=== PATIENT | female | born 1990 | race Caucasian/White ===

== ENCOUNTER 2019-01-11 12:18 | Emergency (ER) | payer OTHER ==
--- OUTSIDE RECORDS SUMMARY | 2019-01-11 12:20 | XMS REPORT ---
:1990 [facility] Address [address] [place] [address] [address]. [address] [place] [address] Care Team Providers Name Role Phone Unavailable Unavailable Unavailable Problems This patient has no known problems. Allergies, Adverse Reactions, Alerts This patient has no known allergies or adverse reactions. Medications This patient has no known medications.
[2019-01-11] MEDS ORDERED: DEXAMETHASONE 10 MG/ML VIAL ONE (13:31)
[2019-01-11] MEDS ORDERED: MEPERIDINE HCL 25 MG/0.5 ML ONE (13:31)
[2019-01-11] MEDS ORDERED: KETOROLAC 30 MG/ML INJ ONE (13:32)
--- NOTE | 2019-01-11 14:12 | ER ---
Nurse's Notes [facility] Name: Ana Laura Aparicio Age: 28 yrs Sex: Female : 1990 Arrival Date: 01/11/2019 Time: 12:19 Bed 4 Private MD: Diagnosis: Low back pain;Strain of muscle, fascia and tendon of lower back Presentation: 01/11 12:42 Presenting complaint: Patient states: mid back pain radiating to low back since iw , states she lifted something wrong. Transition of care: patient was not received from another setting of care. Onset of symptoms was January 08, 2019. Risk Assessment: Do you want to hurt yourself or someone else? Patient reports no desire to harm self or others. Initial Sepsis Screen: Does the patient meet any 2 criteria? No. Patient's initial sepsis screen is negative. Does the patient have a suspected source of infection? No. Patient's initial sepsis screen is negative. Care prior to arrival: None. 12:42 Method Of Arrival: Ambulatory iw 12:42 Acuity: JEFFERY 4 iw Triage Assessment: 13:15 General: Appears in no apparent distress. uncomfortable. General: Behavior is calm, hj cooperative, appropriate for age. Pain: Complains of pain in back. Musculoskeletal: Circulation, motion, and sensation intact. Capillary refill < 3 seconds, is > 3 seconds. 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 - Social history:: Smoking status: Patient uses tobacco products, smokes one pack cigarettes per day. - Ebola Screening: : Patient negative for fever greater than or equal to 101.5 degrees Fahrenheit, and additional compatible Ebola Virus Disease symptoms Patient denies exposure to infectious person Patient denies travel to an Ebola-affected area in the 21 days before illness onset No symptoms or risks identified at this time. - Family history:: not pertinent. - Hospitalizations: : No recent hospitalization is reported. Screenin:15 Abuse screen: Denies threats or abuse. Denies injuries from another. Nutritional hj screening: No deficits noted. Tuberculosis screening: No symptoms or risk factors identified. Fall Risk None identified. Assessment: 13:15 General: Appears in no apparent distress. uncomfortable, Behavior is calm, cooperative, hj appropriate for age. Pain: Complains of pain in back. Neuro: Level of Consciousness is Oriented to. Cardiovascular: Capillary refill < 3 seconds Patient's skin is warm and dry. Respiratory: Airway is patent Respiratory effort is even, unlabored, Respiratory pattern is regular, symmetrical. GI: No signs and/or symptoms were reported involving the gastrointestinal system. : No signs and/or symptoms were reported regarding the genitourinary system. EENT: No signs and/or symptoms were reported regarding the EENT system. Derm: No signs and/or symptoms reported regarding the dermatologic system. Musculoskeletal: Reports pain in back. Vital Signs: 12:46 BP 120 / 70; Pulse 63; Resp 16; Pulse Ox 100% on R/A; Weight 77.11 kg; Height 5 ft. 5 iw in. (165.10 cm); Pain 9/10; 12:46 Body Mass Index 28.29 (77.11 kg, 165.10 cm) iw ED Course: 12:19 Patient arrived in ED. as 12:37 Edmar Fitzgerald MD is Attending Physician. rn 12:45 Triage completed. iw 12:46 Arm band placed on. iw 13:03 Jah Eli, KENZIE is Primary Nurse. hj 13:15 Patient has correct armband on for positive identification. Bed in low position. Call hj light in reach. Side rails up X 1. 13:15 Inserted saline lock: 22 gauge in right antecubital area, using aseptic technique. hj 14:26 No provider procedures requiring assistance completed. IV discontinued, intact, iw bleeding controlled, No redness/swelling at site. Pressure dressing applied. Administered Medications: 13:24 Drug: Decadron - Dexamethasone 10 mg Route: IVP; Site: right antecubital; hj 14:02 Follow up: Response: No adverse reaction hj 13:24 Drug: TORadol - Ketorolac 15 mg Route: IVP; Site: right antecubital; hj 14:02 Follow up: Response: No adverse reaction; Pain is decreased hj 13:25 Drug: Demerol 25 mg Route: IVP; Site: right antecubital; hj 14:02 Follow up: Response: No adverse reaction; Pain is decreased hj 14:07 Drug: morphine 4 mg Route: IVP; Site: right antecubital; hj 14:13 Follow up: Response: No adverse reaction; Pain is decreased Outcome: 14:11 Discharge ordered by . rn 14:26 Discharged to home ambulatory, with friend. iw 14:26 Condition: good 14:26 Discharge instructions given to patient, family, Instructed on discharge instructions, follow up and referral plans. medication usage, Demonstrated understanding of instructions, follow-up care, medications, Prescriptions given X 3. 14:27 Patient left the ED. iw Signatures: Bianca Mejia Irene, RN RN iw Nieto, Roman, MD MD rn Joaquin, Henry, RN RN
--- NOTE | 2019-01-11 14:12 | EDPHYS ---
Physician Documentation [facility] Name: Ana Laura Aparicio Age: 28 yrs Sex: Female : 1990 Arrival Date: 01/11/2019 Time: 12:19 Bed 4 Private MD: ED Physician Edmar Fitzgerald HPI: 01/11 13:10 This 28 yrs old Female presents to ER via Ambulatory with complaints of Back rn Pain. 13:10 The patient presents with pain that is acute. The symptoms are located in the low back. rn Onset: The symptoms/episode began/occurred 3 day(s) ago. The pain does not radiate. Associated signs and symptoms: The patient has no apparent associated signs or symptoms, Pertinent negatives: abdominal pain, constipation, dysuria, fever, hematuria, incontinence, numbness, tingling, urinary retention, vomiting, weakness. Modifying factors: The patient symptoms are alleviated by remaining still, the patient symptoms are aggravated by any movement. Severity of symptoms: At their worst the symptoms were moderate, in the emergency department the symptoms are unchanged. The patient has experienced a previous episode. Reports has known back problems, this has happened to her in past, lifts heavy things, lifting windows on , no snap or pop but felt immediate pain to lower back, seen by massage therapist, feels like made it worse, similar episode in past. No bowel/bladder problems, no weakness, just not getting better. . 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 - Social history:: Smoking status: Patient uses tobacco products, smokes one pack cigarettes per day. - Ebola Screening: : Patient negative for fever greater than or equal to 101.5 degrees Fahrenheit, and additional compatible Ebola Virus Disease symptoms Patient denies exposure to infectious person Patient denies travel to an Ebola-affected area in the 21 days before illness onset No symptoms or risks identified at this time. - Family history:: not pertinent. - Hospitalizations: : No recent hospitalization is reported. ROS: 13:10 Constitutional: Negative for fever, chills, and weight loss, Neck: Negative for injury, rn pain, and swelling, Cardiovascular: Negative for chest pain, palpitations, and edema, Respiratory: Negative for shortness of breath, cough, wheezing, and pleuritic chest pain, Abdomen/GI: Negative for abdominal pain, nausea, vomiting, diarrhea, and constipation, Back: + low back pain : Negative for injury, bleeding, discharge, and swelling, MS/Extremity: Negative for injury and deformity, Skin: Negative for injury, rash, and discoloration, Neuro: Negative for headache, weakness, numbness, tingling, and seizure. Exam: 13:10 Constitutional: This is a well developed, well nourished patient who is awake, alert, rn appears uncomfortable Back: No spinal tenderness. + left lower perilumbar region muscular tenderness, no lesions, no skin changes. Skin: Warm, dry MS/ Extremity: Pulses equal, no cyanosis. Neurovascular intact. Full, normal range of motion. Equal circumference. Neuro: Awake and alert, GCS 15, oriented to person, place, time, and situation. Cranial nerves II-XII grossly intact. Motor strength 5/5 in all extremities. Sensory grossly intact. Cerebellar exam normal. Vital Signs: 12:46 BP 120 / 70; Pulse 63; Resp 16; Pulse Ox 100% on R/A; Weight 77.11 kg; Height 5 ft. 5 iw in. (165.10 cm); Pain 9/10; 12:46 Body Mass Index 28.29 (77.11 kg, 165.10 cm) iw MDM: 12:37 Patient medically screened. rn 14:11 Differential diagnosis: chronic back pain, muscle spasm, radiculopathy, disc rn herniation. Data reviewed: vital signs, nurses notes, and as a result, I will discharge patient. Counseling: I had a detailed discussion with the patient and/or guardian regarding: the historical points, exam findings, and any diagnostic results supporting the discharge/admit diagnosis, the need for outpatient follow up, to return to the emergency department if symptoms worsen or persist or if there are any questions or concerns that arise at home. Response to treatment: the patient's symptoms have markedly improved after treatment, and as a result, I will discharge patient. Special discussion: I discussed with the patient/guardian in detail that at this point there is no indication for admission to the hospital. It is understood, however, that if the symptoms persist or worsen the patient needs to return immediately for re-evaluation. 01/11 12:55 Order name: IV Start; Complete Time: 13:17 rn Administered Medications: 13:24 Drug: Decadron - Dexamethasone 10 mg Route: IVP; Site: right antecubital; hj 14:02 Follow up: Response: No adverse reaction hj 13:24 Drug: TORadol - Ketorolac 15 mg Route: IVP; Site: right antecubital; hj 14:02 Follow up: Response: No adverse reaction; Pain is decreased hj 13:25 Drug: Demerol 25 mg Route: IVP; Site: right antecubital; hj 14:02 Follow up: Response: No adverse reaction; Pain is decreased hj 14:07 Drug: morphine 4 mg Route: IVP; Site: right antecubital; hj 14:13 Follow up: Response: No adverse reaction; Pain is decreased hj Disposition: 01/11/19 14:11 Discharged to Home. Impression: Low back pain, Strain of muscle, fascia and tendon of lower back. - Condition is Stable. - Discharge Instructions: Back Pain, Adult, Muscle Strain. - Prescriptions for Tylenol- Codeine #3 300-30 mg Oral Tablet - take 1 tablet by ORAL route every 6 hours As needed; 20 tablet. Cyclobenzaprine 10 mg Oral Tablet - take 1 tablet by ORAL route every 8 hours As needed; 20 tablet. Medrol (Henry) 4 mg Oral Tablets, Dose Pack - take 1 tablet by ORAL route as directed - follow package instructions; 1 packet. - Medication Reconciliation Form, Thank You Letter, Antibiotic Education, Prescription Opioid Use form. - Follow up: Private Physician; When: As needed; Reason: Recheck today's complaints, Re-evaluation by your physician. - Problem is an acute exacerbation. - Symptoms have improved. Signatures: Grace Deras RN RN iw Nieto, Roman, MD MD rn Joaquin, Henry, RN RN hj Corrections: (The following items were deleted from the chart) 14:11 14:11 01/11/2019 14:11 Discharged to Home. Impression: Low back pain. Condition is rn Stable. Forms are Medication Reconciliation Form, Thank You Letter, Antibiotic Education, Prescription Opioid Use. Follow up: Private Physician; When: As needed; Reason: Recheck today's complaints, Re-evaluation by your physician. Problem is an acute exacerbation. Symptoms have improved. saba 14:27 14:11 01/11/2019 14:11 Discharged to Home. Impression: Low back pain; Strain of muscle, iw fascia and tendon of lower back. Condition is Stable. Forms are Medication Reconciliation Form, Thank You Letter, Antibiotic Education, Prescription Opioid Use. Follow up: Private Physician; When: As needed; Reason: Recheck today's complaints, Re-evaluation by your physician. Problem is an acute exacerbation. Symptoms have improved. saba
[2019-01-11] MEDS ORDERED: MORPHINE 4 MG/ML SYR ONE (14:21)
== END 2019-01-11 14:27 | disposition home or self-care (01) ==
LOC: ER 12:18
DX: S39.012A Strain of muscle, fascia and tendon of lower back, initial encounter (principal); X50.0XXA Overexertion from strenuous movement or load, initial encounter; Y93.9 Activity, unspecified; Y92.9 Unspecified place or not applicable; F17.210 Nicotine dependence, cigarettes, uncomplicated
CPT/HCPCS: J1100; J2175

== ENCOUNTER 2019-12-31 16:31 | Inpatient (IN) | payer OTHER ==
--- OUTSIDE RECORDS SUMMARY | 2019-12-31 16:46 | XMS REPORT ---
:1990 Author Organization [facility] t Address [address] [place] [address] [address]. [address] [place] [address] Care Team Providers Name Role Phone Unavailable Unavailable Unavailable Problems This patient has no known problems. Allergies, Adverse Reactions, Alerts This patient has no known allergies or adverse reactions. Medications This patient has no known medications.
[2019-12-31] MEDS ORDERED: Ringers Lactate 1,000 ML IV PRN (17:10)
[2019-12-31] MEDS ORDERED: PROMETHAZINE INJ 25 MG/ML AMP IM PRN (17:16)
[2019-12-31] MEDS ORDERED: METHYLERGONOVINE 0.2MG/ML AMP IM PRN (17:16)
[2019-12-31] MEDS ORDERED: CARBOPROST TROME 250 MCG/ML IM PRN (17:16)
[2019-12-31] MEDS ORDERED: BUTORPHANOL 1 MG/ML INJ IV PRN (17:16)
[2019-12-31 17:45] LABS: Absolute Lymphocytes (CBC) 1.3 K/uL (0.7-4.9); Basophils % 0.5 % (0-1.3); Hematocrit 35.8 % (36.0-45.0); Lymphocytes % 11.8 % (15.3-44.8); MPV 8.8 fL (7.6-11.3); RBC Red Blood Cell Count 3.81 M/uL (3.86-4.86)
[2019-12-31] MEDS ORDERED: OXYTOCIN/LR 20 UNIT/1,000 ML BAG IV SCH (18:00)
[2019-12-31] MEDS ORDERED: Ringers Lactate 1,000 ML IV SCH (18:00)
[2019-12-31 18:56] VITALS: BMI 34.4
[2019-12-31] MEDS ORDERED: ROPIVACAINE HCL 100 ML IV PRN (20:32)
[2019-12-31] MEDS ORDERED: ROPIVACAINE HCL 0.2% 20ML AMP IV ONE (20:32)
--- NOTE | 2019-12-31 21:45 | PREOPHP ---
Date of Admission: 12/31/2019 This is a 29-year-old 2, para 0, at 38 weeks, 3 days, scheduled for induction next week, came in with spontaneous rupture of membranes. Minimal contractions at this time. Fluid is clear. Baby looks good on the monitor. Vital signs are all stable. Beta strep negative. The patient is about 2 cm, -1 station, vertex, well applied. We will start Pitocin augmentation. Anticipate more active labor later in the night and probably delivery sometime late tonight or tomorrow morning. Full labor talk given. DYANA/JIGNESH Voice ID: [id number]
[2019-12-31 23:25] LABS: RPR (Rapid Plasma Reagin) NON-REACT (NON-REACT)
[2020-01-01] MEDS ORDERED: FENTANYL CITR 100 MCG/2 ML IV ONE (01:54)
[2020-01-01] MEDS ORDERED: LIDOCAINE 1% MPF 30 ML VIAL ONE (04:04)
[2020-01-01] MEDS ORDERED: METHYLERGONOVINE 0.2MG/ML AMP IM ONE (04:05)
[2020-01-01] MEDS ORDERED: BISACODYL 10 MG RECTAL SUPP RECT PRN (04:54)
[2020-01-01] MEDS ORDERED: DOCUSATE NA/SENNA CONC 1 TAB PO PRN (04:54)
[2020-01-01] MEDS ORDERED: ACETAMINOPHEN 500 MG TAB PO PRN (04:54)
[2020-01-01] MEDS ORDERED: DIPHENHYDRAMINE 25 MG TAB/CAP PO PRN (04:54)
[2020-01-01] MEDS ORDERED: Oxycodone HCl/Acetaminophen 1 TAB TAB PO PRN ×2 (04:54)
[2020-01-01] MEDS ORDERED: IBUPROFEN 200 MG TAB PO PRN (04:54)
[2020-01-01] MEDS ORDERED: OXYTOCIN/LR 20 UNIT/1,000 ML BAG IV SCH (05:00)
--- NOTE | 2020-01-01 05:09 | OP ---
Surgeon: Saulo Escobar MD 29-year-old 2, para 0, at 38 weeks and 3 days. Experienced spontaneous rupture of membranes, clear fluid. Was admitted to Labor and Delivery, started on Pitocin augmentation. Had Stadol IV, P henergan IM x1, then epidural anesthesia was instituted. Second stage of approximately 25 minutes, s pontaneous vaginal delivery of a 5-pound 13-ounce male, Apgars 9 and 9. Small first-degree laceratio n sutured with 2-0 chromic after local infiltration. Schultze delivery of the placenta, which was in spected and noted to be intact and normal. 300 mL or less blood loss. Tolerated all procedures well . Final Diagnoses: Term intrauterine at 38 weeks 3 days, with spontaneous rupture of membran es, vaginal delivery at 38 weeks 4 days, epidural anesthesia. Rh positive, immune to Rubella. Negat mimi beta strep screen. DYANA/MODL Voice ID: [id number] Report ID: [id number]
--- NOTE | 2020-01-01 08:49 | PN ---
, patient is doing quite well. Ambulating. Lochia is normal. No complaints. She will ge t her Tdap shot before she leaves the hospital. She had some mild pruritus but no other side effects from the epidural. She has taken no analgesics to this point. Full talk, we will go ove r it again tomorrow when she will probably go home fairly early in the morning. DYANA/JIGNESH Voice ID: [id number] Report ID: [id number]
[2020-01-02] MEDS ORDERED: Tdap (Diph,Pertuss(Acell),Tet Vac) 0.5 ML SYR IMVAC ONE (07:34)
[2020-01-02 08:10] VITALS: BP 124/86; TEMP 97.8
--- NOTE | 2020-01-02 08:53 | DS ---
This is a 29-year-old 2, para 0 at 38 weeks and 3 days, came in with ruptured membranes. Pat ient was started on Pitocin augmentation. Had Stadol initially during the labor and then epidural an esthesia. She delivered a 5-pound 13-ounce male after about a 25 minutes second stage at 38 w eeks and 4 days. Apgars 9 and 9. Small first-degree midline laceration repaired with 2-0 chromic un bo local infiltration. Schultze delivery of the placenta, which was examined and noted be intact an d normal. Less than 300 mL blood loss. Rh positive, immune to Rubella. Negative beta strep screen. ; afebrile, ambulating, and voiding. Lochia is normal. No post-epidural problems. She will get her Tdap shot before she leaves. Requests no analgesics on dismissal. Full instructions gi jena. Final Diagnoses: Term intrauterine at 38 weeks 3 days, spontaneous rupture of membranes at 38 weeks 4 days, vaginal delivery, epidural anesthesia. DYANA/JIGNESH Voice ID: [id number] Report ID: [id number]
[2020-01-03 18:59] LABS: HBsAG Nonreactive (Nonreactive)
== END 2020-01-02 09:00 | disposition home or self-care (01) | DRG 807 ==
LOC: L&D 16:31 → 2ND-WC 16:45
PROVIDERS: ADMIT Specialist; ATTEND Specialist
PROC: 10E0XZZ Delivery of Products of Conception, External Approach (ICD-10-PCS; principal; 2020-01-01)
PROC: 0HQ9XZZ Repair Perineum Skin, External Approach (ICD-10-PCS; 2020-01-01)
PROC: 3E033VJ Introduction of Other Hormone into Peripheral Vein, Percutaneous Approach (ICD-10-PCS; 2020-01-01)
DX: O70.0 First degree perineal laceration during delivery (principal); Z37.0 Single live birth; Z3A.38 38 weeks gestation of pregnancy
CPT/HCPCS: 36415; 85025; 86592; 86901; 87340; 90471; 90715; J0595; J2210; J2550; J2795; J3010; J7120

== ENCOUNTER 2023-01-15 21:15 | Emergency (ER) | payer BC ==
--- OUTSIDE RECORDS SUMMARY | 2023-01-15 21:21 | XMS REPORT | Continuity of Care Document ---
:1990 Author Organization [facility] t Address [address]. [address] [place] [address] Care Team Providers Name Role Phone Rosey Marsh MD Primary Care Physician ROSEY MARSH Attending Clinician Unavailable Rosey Marsh MD Attending Clinician Doctor Unassigned, [place] Attending Clinician Unavailable Abimbola Garcia PA-C Attending Clinician ABIMBOLA GARCIA Attending Clinician Unavailable Citlalli Herrera MA Attending Clinician Unavailable Radha Fam RN Attending Clinician Unavailable 2, [facility] Attending Clinician Unavailable Sandra Kaye Attending Clinician ESTELLA BARRAGAN Attending Clinician Unavailable Estella Barragan MD Attending Clinician Shen Odonnell CRNA Attending Clinician Rahul Dhillon MD Attending Clinician [phone] [facility] Attending Clinician Unavailable 1, [facility] Attending Clinician Unavailable Chadwick Hilton DO Attending Clinician GINA TRAN Attending Clinician Unavailable Gina Tran MD Attending Clinician Guillermo Alicea MD, [place] Attending Clinician [phone] GUILLERMO AGUILARFORTINOLATHEA WALLIS Attending Clinician Unavailable Ultrasound, Adc Mfm Attending Clinician Unavailable DONNA VILLAGOMEZ Attending Clinician Unavailable Ultrasound, Ang-Mfm Attending Clinician Unavailable Donna Villagomez MD Attending Clinician [phone] ROSEY MARSH Admitting Clinician Unavailable Rosey Marsh MD Admitting Clinician GINA TRAN Admitting Clinician Unavailable Gina Tran MD Admitting Clinician Payers Payer Name Policy Type Policy Number Effective Date Expiration Date Gloria BURGESS II [id number] 2013 00:00:00 [employer] [facility] - [id number] 2022 00:00:00 OUT OF STATE Problems Condition Condition Condition Status Onset Resolution Last Treating Co mments Source Name Details Category Date Date Treatment Clinician Date Presence Presence Disease Active Unive rs of of 2-28 [place] Medical contracept contracept Br anch mimi device mimi device Disease Active U nivers hypertensi hypertensi 3-30 it y of on on 00:: [address] Status Status Disease Active Univers post post 3-20 ity of bilateral bilateral 00:00: Daksha harrison salpingect salpingect 00 Me dical cecy [facility] Obesity Obesity Disease Active Univers (BMI (BMI 1-25 ity of 30-39.9) 30-39.9) 00:00: [address] Tobacco Tobacco Disease Active Univers use use 9-26 ity of disorder disorder 00:00: [address] Allergies, Adverse Reactions, Alerts Allergy Allergy Status Severity Reaction(s) Onset Inactive Treating Comm ents Source Name Type Date Date Clinician NO KNOWN Drug Active Univers ALLERGIE Class ity of S [facility] Social History Social Habit Start Date Stop Date Quantity Comments Source History of tobacco 2011-09-16 Cigarette Smoker University of use 00:00:00 [facility] ASSERTION [facility] Alcohol intake 2022-11-13 2022-11-13 .14 /d University of 00:00:00 00:00:00 [facility] Exposure to 2022-11-02 2022-11-12 Not sure [facility] SARS-CoV-2 (event) 00:00:00 20:09:00 [facility] Cigarette 2022-04-24 2022-04-24 University of pack-years 00:00:00 00:00:00 [facility] Tobacco use and 2022-04-24 2022-04-24 Smokeless Universit y of exposure 00:00:00 00:00:00 tobacco non-user [facility] Cigarettes smoked 2022-04-24 2022-04-24 Univers ity of current (pack per 00:00:00 00:00:00 [facility] ) - Reported Branch Sex [birth year] At [birth year] Universit y of 00:00:00 00:00:00 [facility] Smoking Status Start Date Stop Date Source Ex-smoker 2022-04-24 00:00:00 2022-04-24 00:00:00 Universi ty of [facility] Medications Ordered Filled Start Stop Current Ordering Indication Dosage Frequency Signature Comments Components Source Medication Medication Date Date Medication? Clinician (SIG) Name Name levonorgest 2022- No [id number] 1{devic Univers reL 10-15 e} ity of (MIRENA) 18:30: 17:39 [place] IUD 1 00 :00 [facility] [place] levonorgest 2022- No [id number] 1{devic 1 Device, Univers reL 10-15 e} Intrauteri ity of (MIRENA) 18:30: 17:39 ne, ONCE, [place] IUD 1 00 :00 1 dose, On [facility] Branch 10/15/22 at 1230, Routine levonorgest 2022- No [id number] 1{devic Univers reL 10-15 e} ity of (MIRENA) 18:30: 17:39 [place] IUD 1 00 :00 [facility] [place] levonorgest 2022- No [id number] 1{devic 1 Device, Univers reL 10-15 e} Intrauteri ity of (MIRENA) 18:30: 17:39 ne, ONCE, [place] IUD 1 00 :00 1 dose, On [facility] [place] Branch 10/15/22 at 1230, Routine miSOPROStoL 2022-0 Yes 200ug Take 1 Uni vers 200 mcg 1-19 tablet by ity of tablet 00:00: mouth in [place] 00 the Medical morning. Branch miSOPROStoL 0 Yes 200ug Take 1 Uni vers 200 mcg 1-19 tablet by ity of tablet 00:00: mouth in [place] 00 the Medical morning. [place] miSOPROStoL 0 Yes 200ug Take 1 Uni vers 200 mcg 1-19 tablet by ity of tablet 00:00: mouth in [place] 00 the Medical morning. [place] miSOPROStoL 0 2023- No 200ug Take 1 Un kelli 200 mcg 1-19 01-30 tablet by ity of tablet 00:00: 00:00 mouth in [place] 00 :00 the Medical morning. [place] miSOPROStoL 2022-0 2023- No 200ug Take 1 Un [place] 200 mcg 1-19 01-30 tablet by ity of tablet 00:00: 00:00 mouth in [place] 00 :00 the Medical morning. [place] miSOPROStoL 0 2023- No 200ug Take 1 Un [place] 200 mcg 1-19 01-30 tablet by ity of tablet 00:00: 00:00 mouth in [place] 00 :00 the Medical morning. [place] miSOPROStoL 2021-09 Yes [id number] Take one Univers 200 mcg 2-12 tablet ity of tablet 00:00: night [place] 00 before Medical procedure, Branch then take one tablet morning of procedure miSOPROStoL 2021-09 Yes [id number] Take one Univers 200 mcg 2-12 tablet ity of tablet 00:00: night [place] 00 before Medical procedure, Branch then take one tablet morning of procedure miSOPROStoL 2021-09 Yes [id number] Take one Univers 200 mcg 2-12 tablet ity of tablet 00:00: night [place] 00 before Medical procedure, Branch then take one tablet morning of procedure miSOPROStoL 2021-09 Yes [id number] Take one Univers 200 mcg 2-12 tablet ity of tablet 00:00: night [place] 00 before Medical procedure, Branch then take one tablet morning of procedure miSOPROStoL 2021-09 Yes [id number] Take one Univers 200 mcg 2-12 tablet ity of tablet 00:00: night [place] 00 before Medical procedure, Branch then take one tablet morning of procedure miSOPROStoL 2021-09 Yes [id number] Take one Univers 200 mcg 2-12 tablet ity of tablet 00:00: night [place] 00 before Medical procedure, Branch then take one tablet morning of procedure miSOPROStoL 2021-09- No [id number] Take one Univers 200 mcg 2-12 -12 tablet ity of tablet 00:00: 00:00 night [place] 00 :00 before Medical procedure, Branch then take one tablet morning of procedure miSOPROStoL 2021-09- No [id number] Take one Univers 200 mcg 2-12 -12 tablet ity of tablet 00:00: 00:00 night [place] 00 :00 before Medical procedure, Branch then take one tablet morning of procedure amoxicillin Yes [id number] 500mg Take 1 Univers -pot 8 [id number] tablet by ity of clavulanate 00:00: mouth in [place] 500 mg 00 the Medical (AUGMENTIN) morning Branc h 500-125 mg and 1 tablet tablet in the evening. mupirocin 2 Yes [id number] Apply to Univers % ointment 04-24 [id number] area(s) 3 it y of 00:00: (three) [place] 00 times Medical daily. Branch norgestimat Yes [id number] 1{tbl} Take 1 Univers e-ethinyl 8- tablet by ity o f estradioL 00:00: [place] 0.25-35 00 the Medical mg-mcg per morning. Branc h tablet amoxicillin Yes [id number] 500mg Take 1 Univers -pot 8 [id number] tablet by ity of clavulanate 00:00: mouth in [place] 500 mg 00 the Medical (AUGMENTIN) morning Branc h 500-125 mg and 1 tablet tablet in the evening. mupirocin 2 Yes [id number] Apply to Univers % ointment 8 [id number] area(s) 3 it y of 00:00: (three) [place] 00 times Medical daily. Branch norgestimat Yes [id number] 1{tbl} Take 1 Univers e-ethinyl 8-09 tablet by ity o f estradioL 00:00: [place] 0.25-35 00 the Medical mg-mcg per morning. Branc h tablet amoxicillin 2021-0 Yes [id number] 500mg Take 1 Univers -pot 8 [id number] tablet by ity of clavulanate 00:00: mouth in [place] 500 mg 00 the Medical (AUGMENTIN) morning Branc h 500-125 mg and 1 tablet tablet in the evening. mupirocin 2 2021- Yes [id number] Apply to Univers % ointment 8 [id number] area(s) 3 it y of 00:00: (three) [place] 00 times Medical daily. [place] norgestimat Yes [id number] 1{tbl} Take 1 Univers e-ethinyl 8-09 tablet by ity o f estradioL 00:00: [place] 0.25-35 00 the Medical mg-mcg per morning. Branc h tablet amoxicillin 2021- Yes [id number] 500mg Take 1 Univers -pot 8 [id number] tablet by ity of clavulanate 00:00: mouth in [place] 500 mg 00 the Medical (AUGMENTIN) morning Branc h 500-125 mg and 1 tablet tablet in the evening. mupirocin 2 2021- Yes [id number] Apply to Univers % ointment 04-24 [id number] area(s) 3 it y of 00:00: (three) [place] 00 times Medical daily. [place] norgestimat Yes [id number] 1{tbl} Take 1 Univers e-ethinyl 8-09 tablet by ity o f estradioL 00:00: [place] 0.25-35 00 the Medical mg-mcg per morning. Branc h tablet amoxicillin 2021-0 Yes [id number] 500mg Take 1 Univers -pot 8 [id number] tablet by ity of clavulanate 00:00: mouth in [place] 500 mg 00 the Medical (AUGMENTIN) morning Branc h 500-125 mg and 1 tablet tablet in the evening. mupirocin 2 2021-0 Yes [id number] Apply to Univers % ointment 04-24 [id number] area(s) 3 it y of 00:00: (three) [place] 00 times Medical daily. [place] norgestimat Yes [id number] 1{tbl} Take 1 Univers e-ethinyl 8-09 tablet by ity o f estradioL 00:00: [place] 0.25-35 00 the Medical mg-mcg per morning. Branc h tablet amoxicillin 2021-0 Yes [id number] 500mg Take 1 Univers -pot 8 [id number] tablet by ity of clavulanate 00:00: mouth in [place] 500 mg 00 the Medical (AUGMENTIN) morning Branc h 500-125 mg and 1 tablet tablet in the evening. mupirocin 2 2021-0 Yes [id number] Apply to Univers % ointment 04-24 [id number] area(s) 3 it y of 00:00: (three) [place] 00 times Medical daily. [place] norgestimat 0 Yes [id number] 1{tbl} Take 1 Univers e-ethinyl 8-09 tablet by ity o f estradioL 00:00: [place] 0.25-35 00 the Medical mg-mcg per morning. Branc h tablet amoxicillin 2021-0 Yes [id number] 500mg Take 1 Univers -pot 8 [id number] tablet by ity of clavulanate 00:00: mouth in [place] 500 mg 00 the Medical (AUGMENTIN) morning Branc h 500-125 mg and 1 tablet tablet in the evening. mupirocin 2 Yes [id number] Apply to Univers % ointment 04-24 [id number] area(s) 3 it y of 00:00: (three) [place] 00 times Medical daily. [place] norgestimat 2021-0 Yes [id number] 1{tbl} Take 1 Univers e-ethinyl 8-09 tablet by ity o f estradioL 00:00: [place] 0.25-35 00 the Medical mg-mcg per morning. Branc h tablet amoxicillin 2021-0 Yes [id number] 500mg Take 1 Univers -pot 8- [id number] tablet by ity of clavulanate 00:00: mouth [place] 500 mg 00 the Medical (AUGMENTIN) morning Branc h 500-125 mg and 1 tablet tablet in the evening. mupirocin 2 2021-0 Yes [id number] Apply to Univers % ointment 8 [id number] area(s) 3 it y of 00:00: (three) [place] 00 times Medical daily. [place] norgestimat 2021-0 Yes [id number] 1{tbl} Take 1 Univers e-ethinyl 8-09 tablet by ity o f estradioL 00:00: [place] 0.25-35 00 the Medical mg-mcg per morning. Branc h tablet amoxicillin 2021-0 Yes [id number] 500mg Take 1 Univers -pot 8- [id number] tablet by ity of clavulanate 00:00: mouth in [place] 500 mg 00 the Medical (AUGMENTIN) morning Branc h 500-125 mg and 1 tablet tablet in the evening. mupirocin 2 2021-0 Yes [id number] Apply to Univers % ointment 8 [id number] area(s) 3 it y of 00:00: (three) [place] 00 times Medical daily. [place] norgestimat 0 Yes [id number] 1{tbl} Take 1 Univers e-ethinyl 8-09 tablet by ity o f estradioL 00:00: [place] 0.25-35 00 the Medical mg-mcg per morning. Branc h tablet amoxicillin 2021-0 Yes [id number] 500mg Take 1 Univers -pot 8- [id number] tablet by ity of clavulanate 00:00: mouth in [place] 500 mg 00 the Medical (AUGMENTIN) morning Branc h 500-125 mg and 1 tablet tablet in the evening. mupirocin 2 2021-0 Yes [id number] Apply to Univers % ointment 8 055930 area(s) 3 it y of 00:00: (three) [place] 00 times Medical daily. [place] norgestimat 2021-0 Yes [id number] 1{tbl} Take 1 Univers e-ethinyl 8-09 tablet by ity o f estradioL 00:00: [place] 0.25-35 00 the Medical mg-mcg per morning. Branc h tablet amoxicillin 2021-0 Yes [id number] 500mg Take 1 Univers -pot 8- [id number] tablet by ity of clavulanate 00:00: mouth in [place] 500 mg 00 the Medical (AUGMENTIN) morning Branc h 500-125 mg and 1 tablet tablet in the evening. mupirocin 2 2022-0 Yes [id number] Apply to Univers % ointment 04-24 [id number] area(s) 3 it y of 00:00: (three) [place] 00 times Medical daily. [place] norgestimat Yes [id number] 1{tbl} Take 1 Univers e-ethinyl 8-09 tablet by ity o f estradioL 00:00: [place] 0.25-35 00 the Medical mg-mcg per morning. Branc h tablet amoxicillin 2021-0 Yes [id number] 500mg Take 1 Univers -pot 8 [id number] tablet by ity of clavulanate 00:00: mouth in [place] 500 mg 00 the Medical (AUGMENTIN) morning Branc h 500-125 mg and 1 tablet tablet in the evening. mupirocin 2 Yes [id number] Apply to Univers % ointment 04-24 [id number] area(s) 3 it y of 00:00: (three) [place] 00 times Medical daily. [place] norgestimat Yes [id number] 1{tbl} Take 1 Univers e-ethinyl 8-09 tablet by ity o f estradioL 00:00: [place] 0.25-35 00 the Medical mg-mcg per morning. Branc h tablet amoxicillin 2021-0 Yes [id number] 500mg Take 1 Univers -pot 8 [id number] tablet by ity of clavulanate 00:00: mouth in [place] 500 mg 00 the Medical (AUGMENTIN) morning Branc h 500-125 mg and 1 tablet tablet in the evening. mupirocin 2 Yes [id number] Apply to Univers % ointment 04-24 [id number] area(s) 3 it y of 00:00: (three) [place] 00 times Medical daily. [place] norgestimat Yes [id number] 1{tbl} Take 1 Univers e-ethinyl 8-09 tablet by ity o f estradioL 00:00: [place] 0.25-35 00 the Medical mg-mcg per morning. Branc h tablet amoxicillin 2021-0 Yes [id number] 500mg Take 1 Univers -pot 8 [id number] tablet by ity of clavulanate 00:00: mouth in [place] 500 mg 00 the Medical (AUGMENTIN) morning Branc h 500-125 mg and 1 tablet tablet in the evening. mupirocin 2 Yes [id number] Apply to Univers % ointment 04-24 [id number] area(s) 3 it y of 00:00: (three) [place] 00 times Medical daily. [place] norgestimat Yes [id number] 1{tbl} Take 1 Univers e-ethinyl 04-24 tablet by ity o f estradioL 00:00: [place] 0.25-35 00 the Medical mg-mcg per morning. Branc h tablet amoxicillin 2022- No [id number] 500mg Take 1 Univers -pot 04-24 [id number] tablet by ity of clavulanate 00:00: 00:00 mouth [place] 500 mg 00 :00 the Medical (AUGMENTIN) morning Branc h 500-125 mg and 1 tablet tablet in the evening. mupirocin 2 2022- No [id number] Apply to Univers % ointment 04-24 [id number] area(s) 3 i ty of 00:00: 00:00 (three) [place] 00 :00 times Medical daily. [place] norgestimat 3- No [id number] 1{tbl} Take 1 Univers e-ethinyl 04-24 tablet by ity of estradioL 00:00: 00:00 mouth in [place] 0.25-35 00 :00 the Medical mg-mcg per morning. Branc h tablet amoxicillin 2022- No [id number] 500mg Take 1 Univers -pot 04-24 [id number] tablet by ity of clavulanate 00:00: 00:00 mouth [place] 500 mg 00 :00 the Medical (AUGMENTIN) morning Branc h 500-125 mg and 1 tablet tablet in the evening. mupirocin 2 2022- No [id number] Apply to Univers % ointment 04-24 [id number] area(s) 3 i ty of 00:00: 00:00 (three) [place] 00 :00 times Medical daily. [place] norgestimat 3- No [id number] 1{tbl} Take 1 Univers e-ethinyl 04-24 tablet by ity of estradioL 00:00: 00:00 mouth in [place] 0.25-35 00 :00 the Medical mg-mcg per morning. Branc h tablet amoxicillin 2022- No [id number] 500mg Take 1 Univers -pot 04-24 [id number] tablet by ity of clavulanate 00:00: 00:00 mouth [place] 500 mg 00 :00 the Medical (AUGMENTIN) morning Branc h 500-125 mg and 1 tablet tablet in the evening. mupirocin 2 2022- No [id number] Apply to Univers % ointment 04-24 [id number] area(s) 3 i ty of 00:00: 00:00 (three) [place] 00 :00 times Medical daily. Branch norgestimat 2022- No [id number] 1{tbl} Take 1 Univers e-ethinyl 04-24 tablet by ity of estradioL 00:00: 00:00 mouth in [place] 0.25-35 00 :00 the Medical mg-mcg per morning. Branc h tablet butalbital- 2021- No [id number] 1{tbl} Take 1 Univers acetaminoph 3-30 - tablet by it y of en-caff 00:00: 00:00 mouth [place] 50-325-40 00 :00 every 4 Medical mg tablet (four) Branch hours as needed (headache) . NIFEdipine 2021- No [id number] 30mg Take 1 Univers ER 30 mg 3-30 - tablet by ity o f tablet 00:00: 00:00 mouth [place] 00 :00 every 24 Medical (twenty-fo Branch ur) hours. butalbital- 2021- No [id number] 1{tbl} Take 1 Univers acetaminoph 3-30 - tablet by it y of en-caff 00:00: 00:00 mouth [place] 50-325-40 00 :00 every 4 Medical mg tablet (four) Branch hours as needed (headache) . NIFEdipine No [id number] 30mg Take 1 Univers ER 30 mg 3-30 - tablet by ity o f tablet 00:00: 00:00 mouth [place] 00 :00 every 24 Medical (twenty-fo Branch ur) hours. 2021- No Take by Unive rs vit 12-06 mouth. ity of calc,iron,f 08:03: 00:00 [place] olic 46 :00 Medical ( Branch VITAMIN ORAL) acetaminoph 2021- No [id number] 650mg Take 2 Univers en 325 mg 12-06- tablets by ity of tablet 00:00: 00:00 mouth [place] 00 :00 every 6 Medical (six) Branch hours as needed for Pain (scale 1-3) or Pain (scale 4-6). 2021- No [id number] 1{tbl} Take 1 Univers vitamin 12-06- tablet by ity of w/FA tablet 00:00: 00:00 mouth [place] 00 :00 daily. Medical Branch docusate 2021- No [id number] 240mg Take 1 U nivers calcium 240 12-06 capsule by i ty of mg capsule 00:00: 00:00 mouth once [place] 00 :00 daily as Medical needed for Branch Constipati on. ferrous 2021- No [id number] 325mg Take 1 Un [place] sulfate 325 12-06- tablet by it y of mg (65 mg 00:00: 00:00 mouth [place] iron) 00 :00 (two) Medical tablet times Branch daily. ibuprofen 2021- No [id number] 600mg Take 1 Univers 600 mg 12-06- tablet by ity of tablet 00:00: 00:00 mouth [place] 00 :00 every 6 Medical (six) Branch hours as needed (Pain). Take with food or milk. acetaminoph 2021- No [id number] 650mg Take 2 Univers en 325 mg 12-06- tablets by ity of tablet 00:00: 00:00 mouth [place] 00 :00 every 6 Medical (six) Branch hours as needed for Pain (scale 1-3) or Pain (scale 4-6). 2021- No [id number] 1{tbl} Take 1 Univers vitamin 12-06-09 tablet by ity of w/FA tablet 00:00: 00:00 mouth [place] 00 :00 daily. Medical Branch docusate 2021- No [id number] 240mg Take 1 U nivers calcium 240 12-06 capsule by i ty of mg capsule 00:00: 00:00 mouth once [place] 00 :00 daily as Medical needed for Branch Constipati on. ferrous 2021- No [id number] 325mg Take 1 Un [place] sulfate 325 12-06 tablet by it y of mg (65 mg 00:00: 00:00 mouth [place] iron) 00 :00 (two) Medical tablet times Branch daily. ibuprofen 2021- No [id number] 600mg Take 1 Univers 600 mg 12-06 tablet by ity of tablet 00:00: 00:00 mouth [place] 00 :00 every 6 Medical (six) Branch hours as needed (Pain). Take with food or milk. 2020- No [id number] Take 1 Un kelli 48-iron-fol 05-18 09-29 TAB-CAP/M2 i ty of ic acid-B6 00:00: 00:00 by mouth [place] (CITRANATAL 00 :00 daily. Medica l B-CALM, FE Branch GLUC,) 20 mg iron-1 mg -25 mg/25 mg TbSQ Immunizations Ordered Filled Immunization Date Status Comments Sour e Immunization Name Name [facility] 2021-10-10 Completed University of 00:00: [facility] TD 2021-10-10 Completed University of 00:00: [facility] TD 2021-10-10 Completed University of 00:00: [facility] TDAP 2021-10-10 Completed University of 00:00: [facility] TDAP 2021-10-10 Completed University of 00:00: [facility] TDAP 2021-10-10 [facility] 2021-10-10 Completed University of 00:00: [facility] TDAP 2021-10-10 Completed [facility] of 00:00:00 [facility] TDAP 2021-10-10 Completed University of 00:00:00 [facility] Branch TDAP 2021-10-10 Completed University of 00:00:00 [facility] Branch TDAP 2021-10-10 Completed University of 00:00:00 [facility] TDAP 2021-10-10 Completed University of 00:00:00 [facility] TDAP 2021-10-10 Completed University of 00:00:00 [facility] Branch TDAP 2021-10-10 Completed University of 00:00:00 [facility] TDAP 2021-10-10 Completed University of 00:00:00 [facility] Branch TDAP 2021-10-10 Completed University of 00:00:00 [facility] TDAP 2021-10-10 Completed University of 00:00:00 [facility] TDAP (ADACEL) 2016-06-16 Completed University of VACCINE 00:00:00 [facility] TDAP (ADACEL) 2016-06-16 Completed University of VACCINE 00:00:00 [facility] TDAP (ADACEL) 2016-06-16 Completed University of VACCINE 00:00:00 [facility] Branch TDAP (ADACEL) 2016-06-16 Completed University of VACCINE 00:00:00 [facility] Branch TDAP (ADACEL) 2016-06-16 Completed University of VACCINE 00:00:00 [facility] TDAP (ADACEL) 2016-06-16 Completed University of VACCINE 00:00:00 [facility] TDAP (ADACEL) 2016-06-16 Completed University of VACCINE 00:00:00 [facility] Branch TDAP (ADACEL) 2016-06-16 Completed University of VACCINE 00:00:00 [facility] Branch TDAP (ADACEL) 2016-06-16 Completed University of VACCINE 00:00:00 [facility] Branch TDAP (ADACEL) 2016-06-16 Completed University of VACCINE 00:00:00 [facility] Branch TDAP (ADACEL) 2016-06-16 Completed University of VACCINE 00:00:00 [facility] Branch TDAP (ADACEL) 2016-06-16 Completed University of VACCINE 00:00:00 [facility] Branch TDAP (ADACEL) 2016-06-16 Completed University of VACCINE 00:00:00 [facility] Branch TDAP (ADACEL) 2016-06-16 Completed University of VACCINE 00:00:00 [facility] Branch TDAP (ADACEL) 2016-06-16 Completed University of VACCINE 00:00:00 [facility] TDAP (ADACEL) 2016-06-16 Completed University of VACCINE 00:00:00 [place] [facility] TDAP (ADACEL) 2016-06-16 Completed University of VACCINE 00:00:00 [facility] TDAP (ADACEL) 2016-06-16 Completed University of VACCINE 00:00:00 [facility] TDAP (ADACEL) 2016-06-16 Completed University of VACCINE 00:00:00 [facility] TDAP (ADACEL) 2016-06-16 Completed University of VACCINE 00:00:00 [facility] TDAP (ADACEL) 2016-06-16 Completed University of VACCINE 00:00:00 [facility] TDAP (ADACEL) 2016-06-16 Completed University of VACCINE 00:00:00 [facility] HPV 2012-11-07 Completed University of 00:00:00 [facility] HPV 2012-11-07 Completed University of 00:00:00 [facility] HPV 2012-11-07 Completed University of 00:00:00 [place] [facility] HPV 2012-11-07 Completed University of 00:00:00 [place] [facility] HPV 2012-11-07 Completed University of 00:00:00 [place] [facility] HPV 2012-11-07 Completed University of 00:00:00 [place] [facility] HPV 2012-11-07 Completed University [facility] 00:00:00 [facility] [facility] HPV 2012-11-07 Completed [facility] 00:00:00 [facility] HPV 2012-11-07 Completed [facility] 00:00:00 [facility] HPV 2012-11-07 Completed [facility] 00:00:00 [facility] HPV 2012-11-07 Completed [facility] 00:00:00 [facility] HPV 2012-11-07 Completed [facility] 00:00:00 [facility] HPV 2012-11-07 Completed [facility] 00:00:00 [facility] HPV 2012-11-07 Completed [facility] 00:00:00 [facility] HPV 2012-11-07 Completed [facility] 00[facility]00:00 [facility] HPV 2012-11-07 Completed [facility] 00:00:00 [facility] HPV 2012-11-07 Completed [facility] 00:00:00 [facility] HPV 2012-11-07 Completed [facility] 00:00:00 [facility] HPV 2012-11-07 Completed [facility] 00:00:00 [facility] HPV 2012-11-07 Completed [facility] 00[facility]00:00 [facility] HPV 2012-11-07 Completed [facility] 00:00:00 [facility] HPV 2012-11-07 Completed [facility] 00:00:00 [facility] Vital Signs Vital Name Observation Time Observation Value Comments Source Systolic blood 2022-11-13 19:07:00 110 mm[Hg] Univer sity of pressure [facility] Diastolic blood 2022-11-13 19:07:00 75 mm[Hg] Unive rsity of [facility] Heart rate 2022-11-13 19:07:00 66 /min [facility] Body temperature 2022-11-13 19:07:00 37.06 Blanca Univ ersity [facility] Body height 2022-11-13 19:07:00 165.1 cm [facility] Body weight 2022-11-13 19:07:00 75.841 kg [facility] BMI 2022-11-13 19:07:00 27.82 kg/m2 [facility] Systolic blood 2022-10-15 16:12:00 128 mm[Hg] Univer [facility]ity [facility] Diastolic blood 2022-10-15 16:12:00 83 mm[Hg] Unive rsity of [facility] Heart rate 2022-10-15 16:12:00 64 /min [facility] Body temperature 2022-10-15 16:12:00 36.67 Blanca [facility] Body height 2022-10-15 16:12:00 165.1 cm [facility] Body weight 2022-10-15 16:12:00 74.844 kg [facility] BMI 2022-10-15 16:12:00 27.46 kg/m2 [facility] Systolic blood 2022-09-27 17:40:00 111 mm[Hg] Univer [facility]ity [facility] Diastolic blood 2022-09-27 17:40:00 76 mm[Hg] Unive rsity of [facility] Heart rate 2022-09-27 17:40:00 75 /min [facility] Body temperature 2022-09-27 17:40:00 36.72 Blanca [facility] Respiratory rate 2022-09-27 17:40:00 18 /min Univ [facility] Body height 2022-09-27 17:40:00 165.1 cm [facility] Body weight 2022-09-27 17:40:00 73.483 kg [facility] BMI 2022-09-27 17:40:00 26.96 kg/m2 [facility] Systolic blood 2022-08-27 15:03:00 122 mm[Hg] Univer [facility]ity [facility] Diastolic blood 2022-08-27 15:03:00 80 mm[Hg] Unive rsity of [facility] Heart rate 2022-08-27 15:03:00 78 /min [facility] Body temperature 2022-08-27 15:03:00 36.67 Blanca [facility] Respiratory rate 2022-08-27 15:03:00 18 /min Univ [facility] Body height 2022-08-27 15:03:00 165.1 cm [facility] Body weight 2022-08-27 15:03:00 73.029 kg [facility] BMI 2022-08-27 15:03:00 26.79 kg/m2 [facility] Systolic blood 2022-04-24 13:46:00 127 mm[Hg] Univer sity of [facility] Diastolic blood 2022-04-24 13:46:00 84 mm[Hg] Unive rsity of [facility] Heart rate 2022-04-24 13:46:00 61 /min [facility] Body temperature 2022-04-24 13:46:00 36.67 Blanca [facility] Respiratory rate 2022-04-24 13:46:00 18 /min Univ [facility] Body height 2022-04-24 13:46:00 165.1 cm [facility] Body weight 2022-04-24 13:46:00 71.85 kg [facility] BMI 2022-04-24 13:46:00 26.36 kg/m2 [facility] Procedures Procedure Date / Time Performing Clinician Source Performed [facility] PATIENT FINANCIAL 2022-11-13 18:41:58 Doctor Unassigned, No [facility] POLICY [facility] ULTRASOUND 2022-10-15 06:01:00 Doctor Unassigned, No [facility] POCT TEST 2022-10-15 00:00:00 Rosey Marsh [facility] POCT TEST 2022-09-27 17:45:00 Rosey Marsh [facility] CONSENT/REFUSAL FOR 2022-09-27 17:06:41 Doctor Unassigned, No [facility] DIAGNOSIS AND TREATMENT [facility] ASSIGNMENT OF BENEFITS 2022-09-27 17:06:20 Doctor Unassigned, No [facility] CONSENT FOR 2022-04-24 05:01:00 Doctor Unassigned, No [facility] POCT TEST 2022-04-24 00:00:00 Abimbola Garcia [facility] Encounters Start End Encounter Admission Attending Care Care Encounter Source Date/Time Date/Time Type Type Clinicians Facility Department ID 2021-12-12 Outpatient P [facility] OBS [id number] Univers 15:24:09 [facility] 2021-11-09 Outpatient X [facility] TRACY [id number] Univers 16:24:49 [facility] 2022-11-13 2022-11-13 Outpatient R ROSEY MARSH [facility] [id number] Univers 13:00[facility] 2022-11-13 Office Rosey Marsh [facility] 1.2.275.781 [id number] Univers 13:00:00 13:14:54 Visit Malik TAI 350.1.13.10 i Angel 4.2.7.2.686 Daksha DORMAN [phone] Wi dical [address] 2022-11-13 2022-11-13 Orders Doctor LUCAS 1.2.840.114 [id number] Univers 00:00:00 00:00:00 Only Unassigned, MELLY 350.1.13.10 ity of [place] [facility] 4.2.7.2.686 Albert as [id number] [address] 2022-10-15 2022-10-15 Outpatient R ROSEY MARSH [facility] [id number] [facility] 10:00:00 11:16:20 ity of [facility] 2022-10-15 2022-10-15 Office Mariah Marshdana Gan [facility] 1.2.840.114 [id number] [facility] 10:00:00 11:16:20 Visit Abimbola Garcia 350.1.13.10 it[place] [phone] [address] 2022-10-15 2022-10-15 Orders Doctor SHAYY 1.2.840.114 [id number] Univers 00:00:00 00:00:00 Only Unassigned, MELLY 350.1.13.10 ity of [place] [facility] 4.2.7.2.686 [place] as [phone] [address] 2022-10-12 2022-10-12 Telephone Rosey Marsh [facility] 1.2.840.114 [id number] Univers 00:00:00 00:00:00 Malik TAI 350.1.13.10 i [place] [phone] Wi dic[address] 2022-10-12 2022-10-12 Refill Rosey Marsh [facility] 1.2.639.171 [id number] Univers 00:00:00 00:00:00 Cam ABIDA 350.1.13.10 i ty [place] [phone] Wi dicia NAL [address] [place] [address] 2022-10-04 2022-10-04 Patient Javier SCMALVIN 1.2.840.114 [id number] Univers 00:00:00 00:00:00 Secure Msg Citlalliadri TAI 350.1.13.10 ity of [place] [phone] Wi dical NAL [address] [facility] 2022-09-27 2022-09-27 Outpatient R JHONROSE MARIENARCISA [facility] [id number] Univers 11:00:00 12:05:21 ABIMBOLA itlisa [facility] 2022-09-27 2022-09-27 Office Rosey Marsh Malik [facility] 1.2.840.114 [id number] Univers 11:00:00 12:05:21 Visit Abimbola Garcia ABIDA 350.1.13.10 ity of [place] [phone] Wi dical NAL [address] [place] [address] 2022-09-27 2022-09-27 Orders Doctor SHAYY 1.2.840.114 [id number] Univers 00:00:00 00:00:00 Only Unassigned, MELLY 350.1.13.10 ity of [place] [facility] 4.2.7.2.686 [place] as [phone] [address] 2022-09-25 2022-09-25 Outpatient R SALMA ROSEY [facility] [id number] Univers 13:15:00 13:15:00 ity [facility] 2022-09-06 2022-09-06 Outpatient R MARSH ROSEY [facility] [id number] Univers 10:30:00 10:30:00 ity of [facility] 2022-09-05 2022-09-05 Patient Jhonrose marienarcisa [facility] 1.2.683.421 [id number] Univers 00:00:00 00:00:00 Secure Msg Abimbolaaamir TAI 350.1.13.10 ity of [place] [phone] Wi dical NAL [address] [place] [address] 2022-08-29 2022-08-29 Telephone Sarwat [facility] 1.2.840.114 [id number] Univers 00:00:00 00:00:00 Radha RYAN 350.1.13.10 it y [place] [phone] [address] 2022-08-27 2022-08-27 Engine Cowling Installer 2, Adc Lab [facility] 1.2.840.114 [id number] Univers 09:45:00 10:00:00 Visit Abimbola Garcia 350.1.13.10 ity of [facility] [place] [phone] Wi dical [facility] [address] [facility] 2022-08-27 2022-08-27 [facility] [id number] Univers 09:00:00 09:47:06 ABIMBOLA flanagan [facility] 2022-08-27 2022-08-27 Office [facility] 1.2.996.923 [id number] [facility] 09:00:00 09:47:06 Visit Abimbola DOMINGUEZEILEEN 350.1.13.10 i ty of [place] [phone] [facility] 2022-05-10 2022-05-10 Patient Radha [facility] 1.2.972.734 [id number] [facility] 00:00:00 00:00:00 Secure Msg Abimbola TAI 350.1.13.10 ity of [place] [phone] [facility] [address] [facility] 2022-04-24 2022-04-24 Outpatient R JHONROSE MARIENARCISA [facility] [id number] Univers 08:30:00 09:26:27 ABIMBOLA flanagan [facility] 2022-04-24 2022-04-24 Office [facility] 1.2.464.404 [id number] [facility] 08:30:00 09:26:27 Visit Abimbola TAI 350.1.13.10 i ty of [facility] [place] [phone] Wi dical [facility] [address] [facility] 2022-04-24 2022-04-24 Orders Doctor LUCAS 1.2.840.114 [id number] Univers 00:00:00 00:00:00 Only Unassigned, MELLY 350.1.13.10 ity of [place] [facility] 4.2.7.2.686 [place] as [id number] [facility] [address] [place] 2022-04-17 2022-04-17 Patient [facility] 1.2.840.114 [id number] Univers 00:00:00 00:00:00 Secure Msg Sandra HEALTH 350.1.13.10 [facility] 4.2.7.2.686 [place] as VAMSI?BLEA [phone] [facility] [address] [facility] OFFICE [facility] 2022-04-14 2022-04-14 Outpatient R YUNG [facility] [id number] Univers 15:00:00 15:24:56 ESTELLA ity [facility] 2022-04-14 2022-04-14 Urgent [facility] 1.2.840.114 [id number] Univers 15:00:00 15:24:56 Care Estella HEALTH 350.1.13.10 it y of [place] 4.2.7.2.686 [place] as VAMSI?BLEA [phone] [address] OFFICE [facility] 2022-01-15 2022-01-15 Outpatient R ROSEY MARSH [facility] [id number] Univers 11:15:00 11:39:54 ity of [facility] 2022-01-15 2022-01-15 Routine Salma Rosey [facility] 1.2.800.563 [id number] Univers 11:15:00 11:39:54 Cam [place] 350.1.13.10 ity of Visit [place] [facility] [phone] Wi dical [facility] [address] [facility] 2021-12-12 2021-12-13 Outpatient P ROSEY MARSH [facility] [place] [id number] Univers 15:26:00 19:00:00 ity of [facility] 2021-12-12 2021-12-13 Hospital Salma Rosey [facility] 1.2.840.114 [id number] Univers 15:26:00 19:00:00 Encounter Cam [place] 350.1.13.10 ity of [facility] 4[place]2.7.2.[place] [id number] [facility] [address] [place] 2021-12-12 2021-12-12 Outpatient P MARSH, [facility] [id number] Univers 15:26:00 15:26:00 ity of [facility] 2021-12-12 2021-12-12 Outpatient R RADHA [facility] [id number] Univers 14:15:00 15:04:01 ABIMBOLA ity of [facility] 2021-12-12 2021-12-12 Routine [facility] 1.2.193.720 [id number] Univers 14:15:00 15:04:01 Abimbola TAI 350.1.13.10 ity of [place] [phone] Wi dic[address] 2021-12-03 2021-12-07 In[facility] [id number] Univers 02:44:00 09:53:00 ity of [facility] 2021-12-03 2021-12-07 Hospital Salma [facility] 1.2.840.114 [id number] Univers 02:44:00 09:53:00 Encounter Malik TAI 350.1.13.10 it[place] [id number] [facility] [address] [place] 2021-12-05 2021-12-05 [facility]est[facility] 1.2.840.114 [id number] Univers 20:03:30 20:03:30 Event Shen TAI 350.1.13.10 i ty of [facility] 4[place]2.7.2.[place] [id number] [facility] [address] [place] 2021-12-05 2021-12-05 Surgery Marsh [facility] 1.2.542.085 [id number] Univers 07:10:00 09:04:00 Cam KARLITON 350.1.13.10 i ty [place] [id number] [facility] [address] [place] 2021-12-04 2021-12-04 Outpatient R SALMA [facility] [id number] Univers 13:00:00 13:00:00 ity of [facility] 2021-12-04 2021-12-04 Anesthesia Alquicira-M [facility] 1.2.840.114 [id number] Univers 09:01:00 12:45:00 Event guillaume, ABIDA 350.1.13.10 i ty of Rahul LAMB 4.2.7.2.686 Albert as CAMPUS [id number] [facility] [address] [place] 2021-12-04 2021-12-04 Anesthesia Alquicira-M [facility] 1.2.840.114 [id number] Univers 09:01:00 09:01:00 Event guillaume ABIDA 350.1.13.10 i ty of [facility] 4.2.7.2.686 [place] as CAMPUS [phone] [facility] [address] [place] 2021-12-03 2021-12-03 Orders Doctor SHAYY 1.2.840.114 [id number] Univers 00:00:00 00:00:00 Only Unassigned, MELLY 350.1.13.10 ity of [place] [facility] 4.2.7.2.686 [place] as [phone] [address] 2021-11-30 2021-11-30 Outpatient Olinda GARCIA [facility] [id number] Univers 13:00:00 13:42:23 ABIMBOLA flanagan [facility] 2021-11-30 2021-11-30 Routine Room, [facility] 1.2.840.1 14 [id number] Univers 13:00:00 13:42:23 Abimbola Garcia 350.1.13.10 ity of [place] [phone] [address] 2021-11-27 2021-11-27 Outpatient Olinda GARCIA [facility] [id number] Univers 13:00:00 14:17:34 ABIMBOLA flanagan [facility] 2021-11-27 2021-11-27 Routine Room, [facility] 1.2.840.1 14 [id number] Univers 13:00:00 14:17:34 Abimbola Garcia 350.1.13.10 ity [place] [phone] Wi dical NAL [address] [place] [address] 2021-11-23 2021-11-23 Routine Room, [facility] 1.2.840.1 14 [id number] Univers 13:00:00 13:15:00 Rosey Marsh 350.1.13.10 ity of [place] [phone] Wi dicia NAL [address] [place] [address] 2021-11-23 2021-11-23 Outpatient Olinda [facility]SH [facility] [id number] Univers 13:00:00 13:00:00 ity of [facility] 2021-11-22 2021-11-22 Engine Cowling Installer [facility] Room [facility] 1.2. 840.114 [id number] Univers 13:30:00 14:15:00 Visit Chadwick Hilton BARBER 350.1.13.10 ity of REGIONAL 4.2.7.2.686 [place] as MATERNAL [id number] [facility] ical & CHILD [address] [place] [address] 2021-11-22 2021-11-22 Outpatient George HILTON [facility] [id number] Univers 13:30:00 13:30:00 CHADWICK ity of [facility] 2021-11-20 2021-11-20 Outpatient Olinda MARSH ROSEY [facility] [id number] Univers 13:00:00 14:04:51 ity of [facility] 2021-11-20 2021-11-20 Routine Room, [facility] 1.2.840.1 14 [id number] Univers 13:00:00 14:04:51 Rosey Marsh 350.1.13.10 it[place] [phone] Wi dical NAL [address] [place] [address] 2021-11-16 2021-11-16 Outpatient ROSEY CAI [facility] [id number] Univers 13:00:00 14:19:59 ity of [facility] 2021-11-16 2021-11-16 Routine Room, [facility] 1.2.840.1 14 [id number] Univers 13:00:00 14:19:59 Rosey Marsh 350.1.13.10 ity of [place] [phone] Wi dic[address] 2021-11-13 2021-11-13 Outpatient R SALMA ROSEY [facility] [id number] Univers 13:00:00 14:08:57 ity of [facility] 2021-11-13 2021-11-13 Routine Room, [facility] 1.2.840.1 14 [id number] Univers 13:00:00 14:08:57 Rosey Marsh 350.1.13.10 ity of [place] [phone] Wi dicia NAL [address] [place] [address] 2021-11-09 2021-11-09 Outpatient X ROSEY MARSH [facility] [id number] Univers 13:55:00 16:00:00 ity of [facility] 2021-11-09 2021-11-09 [facility] Mariah Marshen [facility] 1.2.840.114 [id number] Univers 13:55:00 16:00:00 Encounter Cam [place] 350.1.13.10 ity of [facility] 4.2.7.2.[place] [id number] [address] 2021-11-09 2021-11-09 Routine Rosey Marsh [facility] 1.2.842.664 [id number] Univers 13:00:00 13:48:56 Cam [place] 350.1.13.10 ity of [place] [phone] Wi dic[address] 2021-11-09 2021-11-09 Outpatient X AD, [facility] [id number] Univers 00:46:00 03:51:00 GINA ity of [facility] 2021-11-09 2021-11-09 Emergency Ad, [facility] 1.2.980.911 [id number] Univers 00:46:00 03:51:00 Gina TAI 350.1.13.10 it[place] of [place] [id number] [facility] [address] [place] 2021-11-09 2021-11-09 Telephone Rosey Marsh [facility] 1.2.840.114 [id number] Univers 00:00:00 00:00:00 Malik KARLIEILEEN 350.1.13.10 i ty of [place] [phone] Wi dic[address] 2021-10-31 2021-10-31 Outpatient R RADHA [facility] [id number] Univers 13:00:00 13:21:19 ABIMBOLA [facility] 2021-10-27 2021-10-27 Engine Cowling Installer 1, [facility] Room [facility] 1.. 840.114 [id number] Univers 13:30:00 14:10:24 Visit Althea Cummings BAR[place] 350.1. 13.10 ity [facility] 4.2.7.2.686 [place] as MATERNAL [phone] Med ical & CHILD [address] [place] [address] 2021-10-27 2021-10-27 Outpatient P GUILLERMO [facility] [id number] Univers 13:30:00 13:30:00 KENJI it y of ALTHEA Harrison [facility] 2021-10-24 2021-10-24 Outpatient P [facility] [id number] Univers 10:30:00 10:30:00 ity [facility] 2021-10-16 2021-10-16 Telephone Rosey Marsh [facility] 1.2.840.114 [id number] Univers 00:00:00 00:00:00 Malik TAI 350.1.13.10 i ty [place] [phone] Wi dical NAL [address] [place] [address] 2021-10-16 2021-10-16 Patient Rosey Marsh [facility] 1.2.851.829 [id number] Univers 00:00:00 00:00:00 Secure Msg Cam [place] 350.1.13.10 ity of [place] [phone] Wi dical NAL [address] [facility] 2021-10-16 2021-10-16 Patient Rosey Marsh [facility] 1.2.634.586 [id number] Univers 00:00:00 00:00:00 Secure Msg Cam [place] 350.1.13.10 ity of [place] [id number] Wi dical NAL [address] [facility] 2021-10-10 2021-10-10 Outpatient R ROSEY MARSH [facility] [id number] Univers 13:00:00 14:10:55 ity of [facility] 2021-10-10 2021-10-10 Routine Salma [facility] 1.2.842.085 [id number] Univers 13:00:00 14:10:55 Cam [place] 350.1.13.10 ity of Visit [place] [id number] Wi dical NAL [address] [facility] 2021-10-10 2021-10-10 Orders Doctor SHAYY 1.2.840.114 [id number] Univers 00:00:00 00:00:00 Only Unassigned, MELLY 350.1.13.10 ity of [place] [facility] 4.2.7.2.686 Albert as [phone] [address] 2021-10-09 2021-10-09 Outpatient R ROSEY MARSH [facility] [id number] Univers 09:00:00 09:00:00 ity of [facility] 2021-10-09 2021-10-09 Engine Cowling Installer 2, Adc [facility] 1.2.840.114 [id number] Univers 09:00:00 09:00:00 Visit Rosey Marsh [place] 350.1.13.10 ity of [facility] 4.2[place]7.2.[place] [phone] Wi dical NAL [address] [facility] 2021-09-26 2021-09-26 Engine Cowling Installer Ultrasound, Adc [facility] 1.2 .840.114 [id number] Univers 09:00:00 10:00:00 Visit Althea Cummings KARLIEILEEN 350.1 .13.10 ity of [place] [phone] Wi dical NAL [address] [facility] 2021-09-26 2021-09-26 Outpatient P GUILLERMO [facility] [id number] Univers 09:00:00 09:00:00 LAURENJIMY it y of [place] [facility] 2021-09-26 2021-09-26 Orders Doctor SHAYY 1.2.840.114 [id number] Univers 00:00:00 00:00:00 Only Unassigned, MELLY 350.1.13.10 ity of [place] [facility] 4.2.7.2.686 [place] as [phone] [address] 2021-09-11 2021-09-11 [facility]ine [facility] 1.2.862.896 [id number] Univers 11:30:00 11:45:00 Abimbola TAI 350.1.13.10 ity of [place] [phone] Wi dical [address] 2021-09-11 2021-09-11 Outpatient R RADHA [facility] [id number] Univers 11:30:00 11:30:00 ABIMBOLA mckinneyy [facility] 2021-09-06 2021-09-06 Outpatient R ROSEY MARSH [facility] [id number] Univers 13:30:00 13:30:00 ity of [facility] 2021-09-06 2021-09-06 Outpatient R RADHA [facility] [id number] Univers 10:45:00 11:56:20 ABIMBOLAAAMIR flanagan [facility] 2021-09-06 2021-09-06 [facility] [id number] Univers 10:45:00 11:56:20 Abimbola ANGLEEILEEN [id number] ity of [id number] [phone] Wi dical NAL [address] [facility] 2021-08-24 2021-08-24 Outpatient P HERNANDO [facility] [id number] Univers 13:00:00 15:07:59 CHASEY ity of [facility] 2021-08-24 2021-08-24 Engine Cowling Installer Ultrasound, [facility] [id number] .[id number] Univers 13:00:41 15:00:41 Visit Donna Villagomez Kendal BARBER 350.1. 13.10 ity of [facility] [id number] [place] as MATERNAL [phone] Med ical & CHILD [address] [place] [address] 2021-08-15 2021-08-15 Engine Cowling Installer 2, Adc Lab [facility] [id number] Univers 10:04:49 10:19:49 Visit Rosey Marsh [facility] [id number] ity [facility] [id number] [phone] Wi dical [address] [facility] 2021-08-15 2021-08-15 Outpatient R ROSEY MARSH [facility] [id number] Univers 10:15:00 10:15:00 ity of [facility] 2021-08-15 2021-08-15 Patient Rosey Marsh [facility] [id number] Univers 00:00:00 00:00:00 Secure Msg Malik [facility] [id number] ity [facility] [id number] [phone] Wi dical NAL 134 [facility] 2021-08-14 2021-08-14 Outpatient R ROSEY MARSH [facility] [id number] Univers 11:15:00 12:06:34 ity of [facility] 2021-08-14 2021-08-14 Routine Rosey Marsh [facility] [id number] Univers 11:10:30 12:06:34 Malik TAI [id number] ity of [facility] [id number] [phone] Wi dical NAL [address] [place] [address] 2021-07-28 2021-07-28 Orders Doctor SHAYY [id number] Univers 00:00:00 00:00:00 Only Unassigned, MELLY [id number] ity of [place] [facility] [id number] [place] as [phone] [address] 2021-07-13 2021-07-13 [facility] [id number] Univers 11:00:00 11:13:53 [facility] 2021-07-13 2021-07-13 [facility] [id number] Univers 10:35:40 11:13:53 Abimbola TAI [id number] ity of [id number] [phone] Wi dical [address] 2021-07-13 2021-07-13 Outpatient R RADHA [facility] [id number] Univers 11:00:00 [facility]00[facility] 2021-07-03 Outpatient R [facility] [id number] Univers 09:15:00 09:15:00 ity [facility] 2021-06-29 2021-06-29 Telephone Rosey Marsh [facility] [id number] Univers 00:00:00 00:00:00 Malik Tai [id number] i ty of [id number] [phone] Wi dical [address] 2021-06-15 2021-06-15 Outpatient R ROSEY MARSH [facility] [id number] Univers 14:00:00 14:00:00 ity [facility] 2021-06-14 2021-06-14 Engine Cowling Installer 2, Adc Lab [facility] [id number] Univers 10:38:47 10:53:47 Visit Marsh, Rosey [place] [id number] ity of [id number] [phone] Wi dical nal 353 [facility] 2021-06-14 2021-06-14 Routine Rosey Marsh [facility] [id number] Univers 09:55:50 10:33:51 Malik [place] [id number] ity of [place] [id number] [phone] Wi dical nal 134 [facility] 2021-06-14 2021-06-14 Outpatient R ROSEY MARSH [facility] [id number] Univers 10:00:00 10:00:00 ity of [facility] 2021-06-14 2021-06-14 Orders Doctor SHAYY 1.2.840.114 [id number] Univers 00:00:00 00:00:00 Only Unassigned, MELLY [id number] ity of [place] [facility] 4.2.7.2.686 [place] as [phone] [address] 2021-05-24 2021-05-24 Engine Cowling Installer 2, Adc Lab [facility] [id number] [id number] Univers 08:31:20 08:46:20 Visit Rosey [place] [id number] ity of [id number] [phone] Wi dical nal [address] [place] [address] 2021-05-24 2021-05-24 Outpatient R [facility] [id number] Univers 08:30:00 08:30:00 ity of [facility] 2021-05-23 2021-05-23 Patient Rosey Marsh [facility] [id number] Univers 00:00:00 00:00:00 Secure Msg Malik ABIDA [id number] ity of [place]2.[place] [phone] Wi dical NAL 134 [facility] 2021-05-19 2021-05-19 Outpatient [facility] [id number] Univers 10:20:00 10:20:00 ity of [facility] 2021-05-18 2021-05-18 Office Rosey Marsh [facility] [id number] Univers 07:54:47 09:10:51 Visit Abimbola Garcia [id number] ity of [id number] [phone] Wi dical nal [address] [place] [address] 2021-05-18 2021-05-18 Office Rosey Marsh [facility] [id number] [facility] 07:54:47 09:10:51 Visit Abimbola Garcia [id number] ity of [id number] [phone] Wi dic[address] 2021-05-18 2021-05-18 Outpatient R RADHA [facility] [id number] Univers 08:00:00 08:00:00 ABIMBOLA itlisa [facility] 2021-05-18 2021-05-18 Orders Doctor SHAYY 1.2.840.114 [id number] Univers 00:00:00 00:00:00 Only Unassigned, MELLY 350.1.13.10 ity of [place] [facility] 4.2.7.2.686 [place] as [phone] [address] 2021-05-18 2021-05-18 Orders Doctor SHAYY 1.2.840.114 [id number] Univers 00:00:00 00:00:00 Only Unassigned, MELLY [id number] ity of [place] [facility] 4.2.7.2.686 [place] [phone] [address] Results Test Description Test Time Test Comments Results Result Comments Source POCT TEST 2022-10-15 16:29:00 Test Item Value Reference Range Interpretation Comme nts POCT PREG (test code = 1605) Negative On board controls acceptable with C Line (test code = 3574) Yes POCT PREG LOT # (test code = 3575) [facility]test [facility] 3576[id number] 16:29:00 Test Item Value Reference Range Interpretation Comments POCT PREG (test code = 1605) Negative On board controls acceptable with C Yes Line (test code = 3574) POCT PREG LOT # (test code = 3575) POCT PREG TEST DATE (test code = 3576) [id number] 17:45:00 Test Item Value Reference Range Interpretation Comments POCT PREG (test code = 1605) Negative On board controls acceptable with C Yes Line (test code = 3574) POCT PREG LOT # (test code = 3575) POCT PREG TEST DATE (test code = 3576) [facility] [id number] 17:45:00 Test Item Value Reference Range Interpretation Comments POCT PREG (test code = 1605) Negative On board controls acceptable with C Yes Line (test code = 3574) POCT PREG LOT # (test code = 3575) POCT PREG TEST DATE (test code = 3576) [facility] [id number] 13:52:00 Test Item Value Reference Range Interpretation Comments POCT PREG (test code = 1605) Negative On board controls acceptable with C Yes Line (test code = 3574) POCT PREG LOT # (test code = 3575) POCT PREG TEST DATE (test code = 3576) [facility] [id number] 13:52:00 Test Item Value Reference Range Interpretation Comments POCT PREG (test code = 1605) Negative On board controls acceptable with C Yes Line (test code = 3574) POCT PREG LOT # (test code = 3575) POCT PREG TEST DATE (test code = 3576) [facility]
--- NOTE | 2023-01-16 01:09 | ER ---
Nurse's Notes [facility] Name: Ana Laura Huston Age: 32 yrs Sex: Female : 1990 Arrival Date: 01/15/2023 Time: 21:15 Bed IW9 Private MD: Diagnosis: Presentation: 01/15 21:25 Chief complaint: Patient states: I threw up all day and have really bad diarrhea and vc1 now my vagina hurts and guillory. Coronavirus screen: Vaccine status: Patient reports receiving the 2nd dose of the covid vaccine. Moderna Client denies travel out of the [place] in the last 14 days. At this time, the client does not indicate any symptoms associated with coronavirus-19. Ebola Screen: Patient negative for fever greater than or equal to 101.5 degrees Fahrenheit, and additional compatible Ebola Virus Disease symptoms Patient denies exposure to infectious person. Patient denies travel to an Ebola-affected area in the 21 days before illness onset. No symptoms or risks identified at this time. Initial Sepsis Screen: Does the patient meet any 2 criteria? No. Patient's initial sepsis screen is negative. Does the patient have a suspected source of infection? No. Patient's initial sepsis screen is negative. Risk Assessment: Do you want to hurt yourself or someone else? Patient reports no desire to harm self or others. Onset of symptoms was January 15, 2023 at 18:00. 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 - Social history:: Smoking status: Patient denies any tobacco usage or history of. Vital Signs: 21:25 BP 130 / 89; Pulse 79; Resp 16; Temp 97.9; Pulse Ox 100% ; Weight 77.11 kg; Height 5 vc1 ft. 5 in. ; Pain 10/10; 21:25 Body Mass Index 28.29 (77.11 kg, 165.1 cm) vc1 21:25 Pain Scale: Adult vc1 ED Course: 21:19 Patient arrived in ED. mr 21:19 Asher Jacobson MD is Attending Physician. rt 21:27 Triage completed. vc1 21:28 Arm band placed on right wrist. vc1 22:35 Patient's name was called from ER lobby. No response. Unable to locate patient. Will vc1 disposition as left without being seen by a provider. Administered Medications: No medications were administered Outcome: 22:35 Patient left the ED. vc1 Signatures: Kelsi GarnernegroKelly, RN RN vc1 Asher Jacobson MD MD rt Corrections: (The following items were deleted from the chart) :28 21:27 PSHx: None; vc1 vc1 01/16 01:09 01:08 Patient left the ED. vc1 vc1
[2023-01-16 01:37] VITALS: BP 130/89; TEMP 97.9; O2SAT 100
== END 2023-01-16 01:08 | disposition left against medical advice (07) ==
LOC: ER 21:15
DX: Z02.9 Encounter for administrative examinations, unspecified (principal)
CPT/HCPCS: 99281